=== PATIENT | female | born 1945 | race Caucasian/White ===

== ENCOUNTER → 2023-06-06 08:03 | Outpatient (REF) | payer MEDICARE, SELFPAY ==
[2023-06-06 09:12] LABS: HDL Cholesterol 75 mg/dl; LDL Cholesterol, Calculated 54 mg/dl; Total Cholesterol 141 mg/dl (50-199); Triglyceride 64 mg/dl (10-149); Very Low Density Lipoprotein 12 mg/dl (0-30)
== END ==
LOC: REG 08:03
PROVIDERS: Internal Medicine; ATTENDING PHYSICIAN Family Medicine
DX: E78.5 Hyperlipidemia, unspecified (principal); I70.0 Atherosclerosis of aorta
CPT/HCPCS: 36415; 80061

== ENCOUNTER → 2023-08-08 08:20 | Outpatient (REF) | payer MEDICARE, SELFPAY ==
[2023-08-08 09:28] LABS: % Eosinophils 6.4 % (0-6); % Immature Granulocytes 0.2 % (0-0.5); % Lymphocytes 25.2 % (20.5-51.1); % Monocytes 9.7 % (1.7-9.3); % Neutrophils 57.5 % (42.2-75.2); Absolute Basophils 0.1 10^3/uL (0-0.2); Absolute Eosinophils 0.3 10^3/uL (0-0.7); Absolute Lymphocytes 1.2 10^3/uL (1.2-3.4); Absolute Monocytes 0.5 10^3/uL (0.1-0.6); Absolute Neutrophils 2.8 10^3/uL (1.4-6.5); Hemoglobin 14.2 g/dL (12.0-16.0); Mean Corp Hgb Conc. 33.8 g/dL (33.0-37.0); Mean Corpuscular Hgb 29.8 pg (27.0-31.0); Mean Corpuscular Volume 88.2 fL (81.0-99.0); Mean Platelet Volume 10.6 fL (7.4-10.4); Nucleated Red Blood Cells % 0 %; Platelet Count 247 10^3/uL (130-400); Red Blood Cell Count 4.76 10^6/uL (4.20-5.40); Red Cell Dist. Width 14.3 % (11.5-14.5); White Blood Cell Count 4.9 10^3/uL (4.8-10.8)
[2023-08-08 09:59] LABS: Erythrocyte Sed Rate 14 mm/hour (0-20)
[2023-08-08 11:58] LABS: ALT (SGPT) 22 U/L (0-35); AST (SGOT) 35 U/L (14-36); Albumin 4.3 g/dl (3.5-5.0); Alkaline Phosphatase 46 U/L (38-126); Blood Urea Nitrogen 16 mg/dl (7-17); Calcium 10.2 mg/dl (8.4-10.2); Carbon Dioxide 25 mmol/L (22-30); Chloride 105 mmol/L (98-107); Glucose 56 mg/dl (70-99); Potassium 4.6 mmol/L (3.5-5.1); Sodium 138 mmol/L (135-145); Total Bilirubin 0.5 mg/dl (0.2-1.3); eGFR > 60.00
[2023-08-08 12:54] LABS: C-Reactive Protein < 5.00 mg/L (0.0-10.00)
[2023-08-10 17:02] LABS: Quantiferon Mitogen minus NIL 8.85 IU/mL; Quantiferon NIL 0.03 IU/mL; Quantiferon TB Gold Plus Negative (Negative)
== END ==
LOC: REG 08:20
PROVIDERS: ATTENDING PHYSICIAN Internal Medicine Rheumatology; FAMILY PHYSICIAN Family Medicine
DX: M05.89 Other rheumatoid arthritis with rheumatoid factor of multiple sites (principal); M81.0 Age-related osteoporosis without current pathological fracture; Z11.1 Encounter for screening for respiratory tuberculosis; Z79.899 Other long term (current) drug therapy
CPT/HCPCS: 36415; 80053; 85025; 85652; 86140; 86480

== ENCOUNTER → 2023-08-10 10:53 | Outpatient (REF) | payer MEDICARE, SELFPAY | LOC: WDC 10:53 | PROVIDERS: ATTENDING PHYSICIAN Family Medicine | DX: Z12.31 Encounter for screening mammogram for malignant neoplasm of breast (principal) | CPT/HCPCS: 77063; 77067 ==

== ENCOUNTER 2023-09-26 12:25 | Emergency (ER) | payer MEDICARE, SELFPAY ==
[2023-09-26 12:34] VITALS: BP 161/81
[2023-09-26 12:59] LABS: % Basophils 1.2 % (0-2); % Eosinophils 4.7 % (0-6); % Immature Granulocytes 0.2 % (0-0.5); % Lymphocytes 31.2 % (20.5-51.1); % Monocytes 8.6 % (1.7-9.3); % Neutrophils 54.1 % (42.2-75.2); Absolute Basophils 0.1 10^3/uL (0-0.2); Absolute Eosinophils 0.3 10^3/uL (0-0.7); Absolute Lymphocytes 2.1 10^3/uL (1.2-3.4); Absolute Monocytes 0.6 10^3/uL (0.1-0.6); Absolute Neutrophils 3.6 10^3/uL (1.4-6.5); Hematocrit 40.9 % (37.0-47.0); Mean Corp Hgb Conc. 34.2 g/dL (33.0-37.0); Mean Corpuscular Hgb 29.8 pg (27.0-31.0); Mean Platelet Volume 9.7 fL (7.4-10.4); Nucleated Red Blood Cells % 0 %; Platelet Count 249 10^3/uL (130-400); Red Cell Dist. Width 14.5 % (11.5-14.5); White Blood Cell Count 6.6 10^3/uL (4.8-10.8)
[2023-09-26 13:04] VITALS: BP 147/71
[2023-09-26 13:17] LABS: ALT (SGPT) 21 U/L (0-35); AST (SGOT) 34 U/L (14-36); Albumin 4.5 g/dl (3.5-5.0); Alkaline Phosphatase 45 U/L (38-126); Blood Urea Nitrogen 17 mg/dl (7-17); Calcium 9.9 mg/dl (8.4-10.2); Carbon Dioxide 26 mmol/L (22-30); Chloride 105 mmol/L (98-107); Glucose 100 mg/dl (70-99); Potassium 4.6 mmol/L (3.5-5.1); Sodium 141 mmol/L (135-145); Total Bilirubin 0.6 mg/dl (0.2-1.3); Total Protein 7.4 g/dl (6.3-8.2); eGFR > 60.00
[2023-09-26 13:56] VITALS: BMI 24.3
[2023-09-26 14:00] VITALS: BP 134/70
[2023-09-26 14:18] LABS: Troponin I 0.039 ng/ml
--- NOTE | 2023-09-26 14:28 | ED.GENMED ---
History of Present Illness
<Kenia Conklin PA-C - Last Filed: 09/28/23 13:10>
General
Chief Complaint: Chest Pain
Time Seen by Provider: 09/26/23 13:55
Travel History
Have you had any contact with someone who has COVID-19?: No
Do you have any symptoms of coronavirus? Fever > 100 degrees, chills, cough, shortness of breath, sore throat, loss of taste or smell, muscle aches, or headache?: No
History of Present Illness
History of Present Illness:
78 y/[address] F[address]ed by Dr[address] Caro, history of coarctation of the aorta repair, complete heart block in 2021 requiring pacer, stroke on Eliquis who presents for chest discomfort which she noticed around 11:30 PM last night before bed. It comes in waves
like a crescendo decrescendo from the left axilla into her left upper chest and then resolves. She is also felt fatigued over the last couple of days and did not realize why. She has no pleuritic component to the pain.
Pain is not related to deep breathing or movement. She has no exertional component to her pain. It spontaneously last a minute or so. It comes as a crescendo decrescendo and feels like a pressure or squeezing in her chest. The max intensity is 5
out of 10. She has no new associated symptoms like nausea, vomiting, diaphoresis, shortness of breath, syncope, leg swelling. Patient does have a chronic cough related to her postnasal drip. She is immunocompromised due to meds for RA and
Sjogren's
Past History
<Kenia Conklin PA-C - Last Filed: 09/28/23 13:10>
Past History
ED Past Medical History: CVA (Cerebellar) and Other (ra)
ED Past Surgical History: Other (Craniotomy)
Social History
Tobacco: Non-smoker
Alcohol: None
Personal:
Living: with family
Phy Exam
<Kenia Conklin PA-C - Last Filed: 09/28/23 13:10>
Physical Exam
Physical Exam:
GENERAL: Alert , in no apparent distress
EYE: pupils equal and reactive
NECK: Supple
ENT: o/p clr, mmm.
CARDIAC: Regular rate and rhythm + murmur 3/6
chest wall: nontender,.
LUNGS: Clear breath sounds bilaterally, no acute respiratory distress, no wheezes/rales/rhonchi
ABDOMEN: Soft, without focal tenderness, no r/g, no cvat, normal bowel sounds
NEUROLOGICAL: Alert and oriented, no focal neuro deficits
SKIN: Warm and dry, skin intact.
MUSCULOSKELETAL: No edema, well perfused. neg elvie's sign
PSYCH: Normal and appropriate interaction.
Scores
<Kenia Conklin PA-C - Last Filed: 09/28/23 13:10>
Heart Score for Chest Pain Patients
STEMI patient?: No
History: Moderately Suspicious
ECG: Nonspecific Repolarization
Age: >/= 65 years
Risk Factors: >/= 3 Risk Factors or History of CAD
Troponin: >1 - <3 x Normal Limit
Heart Score for Chest Pain Patients: 7
Heart Score Risk: 72.7 % MACE over next 6 weeks
<Mauro Anderson PA-C - Last Filed: 09/28/23 14:30>
Heart Score for Chest Pain Patients
Heart Score for Chest Pain Patients: 7
Heart Score Risk: 72.7 % MACE over next 6 weeks
Course
<Kenia Conklin PA-C - Last Filed: 09/28/23 13:10>
Orders/Labs/Results
Orders:
Orders
09/26/23 12:26
Electrocardiogram (*1) Urgent
Reason for Study: Chest Pain
EKG- Treatment ONCE
09/26/23 12:50
Complete Blood Count/With Diff Urgent
Comprehensive Metabolic Panel Urgent
Troponin I Urgent
09/26/23 14:39
EKG- Treatment ONCE
CR Chest - 2 Views Urgent
Comment:
Reason For Exam: chest pain
09/26/23 14:42
Consult Cardiology [CARDIOLOGY CONSULT] Urgent
Consulting Provider: Kemi Luis
Was physician already notified: Yes
09/26/23 15:50
Electrocardiogram (*1) Urgent
Reason for Study: Chest Pain
09/26/23 16:08
Troponin I Urgent
Abnormal Lab Results
09/26/23 09/26/23
12:50 16:08
Glucose 100 H mg/dl
(70-99)
Troponin I 0.039 H* ng/ml 0.047 H* ng/ml
09/26/23 12:50
09/26/23 12:50
Vital Signs
Initial and Last Documented VS:
Initial Vital Signs
Temp Pulse Resp BP Pulse Ox
97.9 F 85 18 161/81 100
09/26/23 12:34 09/26/23 12:34 09/26/23 12:34 09/26/23 12:34 09/26/23 12:34
Last Documented Vital Signs
Temp Pulse Resp BP Pulse Ox
97.9 F 81 18 132/62 96
09/26/23 12:34 09/26/23 17:30 09/26/23 17:30 09/26/23 17:00 09/26/23 17:30
<Mauro Anderson PA-C - Last Filed: 09/28/23 14:30>
Orders/Labs/Results
Orders:
Orders
09/26/23 12:26
Electrocardiogram (*1) Urgent
Reason for Study: Chest Pain
EKG- Treatment ONCE
09/26/23 12:50
Complete Blood Count/With Diff Urgent
Comprehensive Metabolic Panel Urgent
Troponin I Urgent
09/26/23 14:39
EKG- Treatment ONCE
CR Chest - 2 Views Urgent
Comment:
Reason For Exam: chest pain
09/26/23 14:42
Consult Cardiology [CARDIOLOGY CONSULT] Urgent
Consulting Provider: Kemi Luis
Was physician already notified: Yes
09/26/23 15:50
Electrocardiogram (*1) Urgent
Reason for Study: Chest Pain
09/26/23 16:08
Troponin I Urgent
Abnormal Lab Results
09/26/23 09/26/23
12:50 16:08
Glucose 100 H mg/dl
(70-99)
Troponin I 0.039 H* ng/ml 0.047 H* ng/ml
09/26/23 12:50
09/26/23 12:50
Vital Signs
Initial and Last Documented VS:
Initial Vital Signs
Temp Pulse Resp BP Pulse Ox
97.9 F 85 18 161/81 100
09/26/23 12:34 09/26/23 12:34 09/26/23 12:34 09/26/23 12:34 09/26/23 12:34
Last Documented Vital Signs
Temp Pulse Resp BP Pulse Ox
97.9 F 81 18 132/62 96
09/26/23 12:34 09/26/23 17:30 09/26/23 17:30 09/26/23 17:00 09/26/23 17:30
<Kenia Conklin PA-C - Last Filed: 09/28/23 13:10>
MDM/Problems Addressed
Differential Diagnosis Includes:
ACS, nstemi, noncardiac chest pain ,msk pain
MDM/Problems Addressed:
78 y/o F followed by dr. caro
coarc of aorta repair , s/p pacer for comp heart block 2021
intermittent left chest pain with fatigue (fatigue x 2 days, L ches tpain comes in waves from axilla to anterior left chest lasting a few minutes, squeezing)
no pain currently but has had episodes while here in the department
no syncope, swelling, sob, pleuritic pain
ekgs x 2 paced
initial trop 0.038 which is elevated minimally
d/w taker off hemp fiber dr. loaiza, 2nd trop pending but she felt that pt's pain is likely MSK/noncardiac and would be comfortable discharging as long as trop not delta elevation
signed out to miguel larsen
<Kenia Conklin PA-C - Last Filed: 09/28/23 13:10>
*Critical Care Note
Total Time (30-74mins, 75-104mins- exclusive of procedures): Not Applicable
<Mauro Anderson PA-C - Last Filed: 09/28/23 14:30>
Update Note
Update Note:
Assumed care of pt from Selin Conklin PA-C at shift change 1600. Pt evaluated by cardiology Dr Luis, chest pain quite atypical. Will plan for outpatient stress. Repeat trop with slight uptick from 0.039 to 0.047, reviewed w/ cards, again
comfortable with outpatient stress given low pre test probability.
ED Attending Note
<Kenia Conklin PA-C - Last Filed: 09/28/23 13:10>
-
Portions of this chart may have been created with voice recognition software.� Occasional wrong word or��sound alike� substitutions may have occurred due to the inherent limitations of voice recognition software.
Discharge Plan
Departure
Patient Disposition: Home (Routine Discharge)
Date of Disposition: 09/26/23
Time of Disposition: 17:01
Patient with high blood pressure during this ER visit?: No
Discharge Problem:
Atypical chest pain
Instructions: Chest Pain CBC Follow Up
Prescriptions:
No Action
famotidine [Pepcid AC] 20 MG tablet
20 mg PO HSPRN PRN (Reason: gastrointestinal issue)
hydroxychloroquine 200 MG tablet
200 mg PO DAILY
fluticasone propionate 1 SPRAY spray,suspension
1 spray intranasal DAILYPRN PRN (Reason: congestion )
cholecalciferol (vitamin D3) [Vitamin D3] 1,000 UNIT capsule
1,000 unit PO DAILY@1400
cyclosporine [Restasis] 10 DROPS dropperette
1 drp BOTH EYES BID
cyanocobalamin (vitamin B-12) [Vitamin B-12] 500 mcg Tablet
500 mcg PO MOTH
diazepam [Valium] 2 mg Tablet
2 mg PO HSPRN PRN (Reason: insomnia)
losartan 25 mg Tablet
25 mg PO DAILY
calcium citrate-vitamin D3 250 mg-5 mcg (200 unit) Tablet
1 tab PO HS
Prolia 60 mg/mL Syringe
60 mg SC [id number]
Orencia
0 mg IV Q4W
Eliquis 5 mg Tablet
5 mg PO BID Qty: 1 0RF
diltiazem HCl 120 mg Capsule,Extended Release 24hr
120 mg PO BID
moxifloxacin 0.5 % Drops
1 drp LEFT EYE QID
rosuvastatin 10 mg Tablet
10 mg PO HS
Referrals:
Erica Malone MD [Family Provider] -
Activity Restrictions/Additional Instructions:
Follow up with Dr Caro's office for stress test as discussed during your ER visit
Interventions
Interventions:
*Risk Screen - Suicide Last Done: 09/26/23 12:34
*General Assessment Last Done: 09/26/23 17:56
*Neglect/Abuse Screening Last Done: 09/26/23 12:34
ED- Fall Risk Assessment Last Done: 09/26/23 14:00
*ED COVID-19 Vaccine History Last Done: 09/26/23 12:34
*Nursing Disposition Last Done: 09/26/23 17:56
ED- Cardiac Assessment Last Done: 09/26/23 14:00
Discharge Date and Time
Discharge Date/Time: 09/26/23 17:58
Print Language: COLOMBIAN
--- NOTE | 2023-09-26 15:27 | CON.CAR ---
Addendum entered and electronically signed by Kemi Luis MD 09/26/23 18:41:
I saw and examined the patient.
The SLEEPER CUTTER's note was reviewed and I agree with the note.
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
neurology at [place]), dyslipidemia, and rheumatoid arthritis, who presents to the ER with c/o left upper chest pain that began last night while lying in bed around midnight. She describes the chest pain as squeezing pain that begin in her left
upper chest and radiates into her left axilla area, lasts for 30 seconds then resolves on its own. It goes as quickly as it comes. IT follows no rhyme or reason, is not exertional. She has diffues RA as well in all joints. on exam, diffuse chest
wall tendeness anteriorly, the pain she has is different and is just below her clavicle near her ppm pocket, this had no evidence of pocket infection, ppm is normally positioned not moving. Her troponin is 0.03 and 0.04. ECG is vpacing. Her cp is
very atypical in location, description and nonexertional component. Low suspicion for acs. Unclear etiology muscular>RA>cardiac. Will arrange for ouptatient stress testing and follow up with Dr Pedraza.
Original Note:
Consultation
Consultation Request
Date/Time Consultation Requested: 09/26/23 2:40p
Date/Time Consultation Performed: 09/26/23 3p
Requesting Provider: Dr. Edwards
Performing Provider: CRISTAL Ellison for Dr. Luis
Reason for Consultation: chest pain
Medical History
-
Chief Complaint: chest pain
History of Present Illness:
Mrs. 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
with neurology at [place]), dyslipidemia, and rheumatoid arthritis, who presents to the ER with c/o left upper chest pain that began last night while lying in bed around midnight. She describes the chest pain as pressure/squeezing pain that begin
in her left upper chest and radiates to her left axilla area, lasts for 30 seconds then resolves on its own. There are no associated symptoms. This am upon waking, she noted the chest pain and it was intermittent 6-8 times. It is not worse with
exertion. She went to her exercise class this am, without worsened symptoms. Initial troponin is 0.039, EKG A paced V sensed.
Past Medical History
Past Medical History: Other (as above)
Past Surgical History: Other (as above)
Social History
Tobacco: Non-Smoker
Alcohol: None
Personal:
Living: With Family
Family History
Family History: Reviewed & Not Pertinent
Allergies / Home Medications
Allergy/AdvReac Type Severity Reaction Status Date / Time
adhesive tape Allergy Swelling, Verified 09/26/23 12:34
skin
irritation
ciprofloxacin Allergy Swelling Verified 09/26/23 12:34
codeine Allergy Nausea / Verified 09/26/23 12:34
Vomiting
Iodinated Contrast Media Allergy Anaphylaxis Verified 09/26/23 12:34
[Iodinated Contrast Media -
IV Dye]
iodine Allergy Shortness Verified 09/26/23 12:34
of Breath
moxifloxacin HCl Allergy Swelling Verified 09/26/23 12:34
[From Avelox]
mushroom Allergy Nausea / Verified 09/26/23 12:34
Vomiting
phenylephrine Allergy Eye drops Verified 09/26/23 12:34
- extended
dilation
of eye
prochlorperazine Allergy PARKINSON Verified 09/26/23 12:34
[From Compazine] LIKE
SYMPTOMS
prochlorperazine edisylate Allergy PARKINSON Verified 09/26/23 12:34
[From Compazine] LIKE
SYMPTOMS
prochlorperazine maleate Allergy PARKINSON Verified 09/26/23 12:34
[From Compazine] LIKE
SYMPTOMS
shellfish derived Allergy intestinal Verified 09/26/23 12:34
upset
levofloxacin AdvReac Swelling Verified 09/26/23 12:34
�Medication �Instructions �Recorded �Confirmed �Type
cholecalciferol (vitamin D3) 25 1,000 unit PO DAILY@1400 Supplement 02/29/20 09/26/23 History
mcg (1,000 unit) capsule (Vitamin
D3)
cyclosporine 0.05 % eye drops in a 1 drp BOTH EYES BID Eye condition 02/29/20 09/26/23 History
dropperette (Restasis)
famotidine 20 mg tablet (Pepcid AC) 20 mg PO HSPRN PRN 02/29/20 09/26/23 History
gastrointestinal issue
fluticasone propionate 50 1 spray intranasal DAILYPRN PRN 02/29/20 09/26/23 History
mcg/actuation nasal congestion
spray,suspension
hydroxychloroquine 200 mg tablet 200 mg PO DAILY Autoimmune disorder 02/29/20 09/26/23 History
Orencia 0 mg IV Q4W Autoimmune disorder 12/02/21 09/26/23 History
calcium citrate 250 mg 1 tab PO HS Supplement 12/02/21 09/26/23 History
calcium-vitamin D3 5 mcg (200
unit) tablet
cyanocobalamin (vitamin B-12) 500 500 mcg PO MOTH Supplement 12/02/21 09/26/23 History
mcg tablet (Vitamin B-12)
denosumab 60 mg/mL subcutaneous 60 mg SC [id number] OSTEOPOROSIS 12/02/21 09/26/23 History
syringe (Prolia)
diazepam 2 mg tablet (Valium) 2 mg PO HSPRN PRN insomnia 12/02/21 09/26/23 History
losartan 25 mg tablet 25 mg PO DAILY Blood pressure 12/02/21 09/26/23 History
apixaban 5 mg tablet (Eliquis) 5 mg PO BID #1 tab 12/03/21 09/26/23 Rx
diltiazem HCl 120 mg 120 mg PO BID 09/26/23 09/26/23 History
capsule,extended release 24 hr
moxifloxacin 0.5 % eye drops 1 drp LEFT EYE QID 09/26/23 09/26/23 History
rosuvastatin 10 mg tablet 10 mg PO HS 09/26/23 09/26/23 History
Review of Systems
-
History Source: Patient
All other systems: Negative unless noted
Physical Exam
Vital Signs
Temp Pulse Resp BP Pulse Ox
97.9 F 77 13 147/71 98
09/26/23 12:34 09/26/23 13:30 09/26/23 13:30 09/26/23 13:04 09/26/23 14:00
Lab Results
09/26/23 12:50
09/26/23 12:50
Troponin I 0.039 ng/ml H* 09/26/23 12:50
Physical Exam
General: Well Developed, Well Nourished and No Apparent Distress
HEENT: Normocephalic, Anicteric and Moist Mucous Membranes
Respiratory: Clear and Non Labored Respirations
Cardiac: S1/S2, Regular Rhythm and Murmur (2/6 MORRO)
Breast: Deferred by me
GI: Soft, Non Tender, Non Distended and Normal Bowel Sounds
Rectal: Deferred by Provider
Genito-urinary: No Costovertebral Tender
Musculoskeletal: No Clubbing
Skin: Warm and Dry
Neuro: AO x 3
Hematologic/Lymphatic: No Lymphadenopathy
Psych: Calm
Impression / Plan
-
Chest pain - intermittent, not with exertion.
- initial troponin 0.039, check second troponin.
- if second troponin is stable then ok to d/c home with outpatient follow up.
- if second troponin is abnormal then we can do an inpatient stress test.
- cath 02/2020: no obstructive CAD.
Afib - paroxysmal.
- stable w/o palpitations.
- V paced.
- on Eliqius, continue.
- continue Diltiazem, intolerant to beta blockers.
- no Afib seen on recent device check 08/2023.
HLD - stable on Crestor 10mg daily.
- LDL 54.
Pacemaker - MDT DC device.
- normal function, followed in our outpatient device clinic.
H/o co-arctation and PDA - s/p repair in 1955.
- stable on echo 10/2022.
CVA - cerebellar, in 2013.
- follows with neurology at [place].
Data Reviewed
-
EKG: Tracing Personally Visualized and interpreted (A sensed, V paced 80 bpm)
Radiology: Report Reviewed by me (cxr: NAD)
Medical Tests (Nuc Med, Echo etc): Report Reviewed by me (echo 10/2022: EF 65-70%, mild/mod AR, no residual PDA or aortic coarctation )
Labs: Labs Reviewed by me
Old Records: Reviewed
[2023-09-26 16:00] VITALS: BP 123/106
[2023-09-26 16:50] LABS: Troponin I 0.047 ng/ml
[2023-09-26 17:00] VITALS: BP 132/62
== END 2023-09-26 17:58 | disposition home or self-care (01) ==
LOC: EMR 12:25
PROVIDERS: Emergency Medicine; Physician Assistant; CONSULT PHYSICIAN Internal Medicine Cardiovascular Disease; EMERGENCY PHYSICIAN Emergency Medicine; FAMILY PHYSICIAN Family Medicine
DX: R07.89 Other chest pain (principal); R53.83 Other fatigue; I48.0 Paroxysmal atrial fibrillation; I10 Essential (primary) hypertension; M06.9 Rheumatoid arthritis, unspecified; E78.5 Hyperlipidemia, unspecified; M35.00 Sjogren syndrome, unspecified; Z79.01 Long term (current) use of anticoagulants; Z95.0 Presence of cardiac pacemaker; Z86.73 Personal history of transient ischemic attack (TIA), and cerebral infarction without residual deficits
CPT/HCPCS: 99285; 71046; 80053; 84484; 85025; 93005

== ENCOUNTER → 2023-09-29 07:23 | Outpatient (REF) | payer MEDICARE, SELFPAY ==
[2023-09-29] MEDS: LEXISCAN 0.400000000000000022 MG IV (09:04)
[2023-09-29] MEDS: AMINOPHYLLINE 75 MG IV (09:21)
== END ==
LOC: RCS 07:23
PROVIDERS: ATTENDING PHYSICIAN Internal Medicine; FAMILY PHYSICIAN Family Medicine
DX: R07.89 Other chest pain (principal)
CPT/HCPCS: 78452; 93017; A9500; J2785

== ENCOUNTER → 2023-12-21 13:41 | Outpatient (REF) | payer MEDICARE, SELFPAY | LOC: HWRAD 13:41 | PROVIDERS: ATTENDING PHYSICIAN Family Medicine | DX: R10.2 Pelvic and perineal pain (principal) | CPT/HCPCS: 76830; 76856 ==

== ENCOUNTER → 2024-02-13 09:17 | Outpatient (REF) | payer MEDICARE, SELFPAY ==
[2024-02-13 10:28] LABS: % Basophils 1.5 % (0-2); % Eosinophils 5.1 % (0-6); % Immature Granulocytes 0.2 % (0-0.5); % Lymphocytes 27.5 % (20.5-51.1); % Monocytes 8.7 % (1.7-9.3); Absolute Basophils 0.1 10^3/uL (0-0.2); Absolute Eosinophils 0.3 10^3/uL (0-0.7); Absolute Lymphocytes 1.5 10^3/uL (1.2-3.4); Absolute Monocytes 0.5 10^3/uL (0.1-0.6); Hematocrit 42.8 % (37.0-47.0); Hemoglobin 14.4 g/dL (12.0-16.0); Mean Corp Hgb Conc. 33.6 g/dL (33.0-37.0); Mean Corpuscular Hgb 29.1 pg (27.0-31.0); Mean Corpuscular Volume 86.5 fL (81.0-99.0); Nucleated Red Blood Cells % 0 %; Platelet Count 287 10^3/uL (130-400); Red Blood Cell Count 4.95 10^6/uL (4.20-5.40); Red Cell Dist. Width 14.2 % (11.5-14.5); White Blood Cell Count 5.3 10^3/uL (4.8-10.8)
[2024-02-13 10:46] LABS: Erythrocyte Sed Rate 12 mm/hour (0-20)
[2024-02-13 11:03] LABS: ALT (SGPT) 26 U/L (0-35); AST (SGOT) 37 U/L (14-36); Albumin 4.7 g/dl (3.5-5.0); Alkaline Phosphatase 42 U/L (38-126); Blood Urea Nitrogen 17 mg/dl (7-17); Calcium 10.3 mg/dl (8.4-10.2); Carbon Dioxide 26 mmol/L (22-30); Chloride 105 mmol/L (98-107); Glucose 84 mg/dl (70-99); Potassium 4.5 mmol/L (3.5-5.1); Sodium 144 mmol/L (135-145); Total Bilirubin 0.4 mg/dl (0.2-1.3); Total Protein 7.3 g/dl (6.3-8.2); eGFR > 60.00
[2024-02-13 11:22] LABS: Vitamin D, 25-OH*** 50.7 ng/mL (30-80)
== END ==
LOC: REG 09:17
PROVIDERS: ATTENDING PHYSICIAN Internal Medicine Rheumatology; FAMILY PHYSICIAN Family Medicine
DX: E55.9 Vitamin D deficiency, unspecified (principal); M05.89 Other rheumatoid arthritis with rheumatoid factor of multiple sites; M81.0 Age-related osteoporosis without current pathological fracture; Z79.899 Other long term (current) drug therapy; I10 Essential (primary) hypertension
CPT/HCPCS: 36415; 80053; 82306; 85025; 85652; 86140

== ENCOUNTER → 2024-02-15 11:11 | Outpatient (REF) | payer MEDICARE, SELFPAY ==
[2024-02-15 16:42] LABS: Urine Albumin Negative (Neg - Trace); Urine Bilirubin Negative (Negative); Urine Character Clear (Clear); Urine Color Yellow; Urine Glucose Negative (Negative); Urine Ketone Negative (Negative); Urine Leukocyte Trace (Negative); Urine Nitrite Negative (Negative); Urine Occult Blood Negative (Negative); Urine Urobilinogen Negative (Neg - 1+); Urine pH 6.5 (5.0-9.0)
[2024-02-15 17:02] LABS: Urine Bacteria Few (Negative); Urine Red Blood Cell 0-2 /HPF (0-2); Urine Squamous Cell 16-20 /LPF (Few)
== END ==
LOC: HWLAB 11:11
PROVIDERS: ATTENDING PHYSICIAN Family Medicine
DX: N94.89 Other specified conditions associated with female genital organs and menstrual cycle (principal); Z79.899 Other long term (current) drug therapy
CPT/HCPCS: 81003; 81015; 87077; 87086; 87186

== ENCOUNTER → 2024-03-23 08:36 | Outpatient (REF) | payer MEDICARE, SELFPAY ==
[2024-03-23 13:12] LABS: % Basophils 1.1 % (0-2); % Eosinophils 3.6 % (0-6); % Immature Granulocytes 0.2 % (0-0.5); % Lymphocytes 25.4 % (20.5-51.1); % Monocytes 8.8 % (1.7-9.3); % Neutrophils 60.9 % (42.2-75.2); Absolute Basophils 0.1 10^3/uL (0-0.2); Absolute Eosinophils 0.2 10^3/uL (0-0.7); Absolute Lymphocytes 1.4 10^3/uL (1.2-3.4); Absolute Monocytes 0.5 10^3/uL (0.1-0.6); Absolute Neutrophils 3.4 10^3/uL (1.4-6.5); Hematocrit 44.7 % (37.0-47.0); Hemoglobin 14.6 g/dL (12.0-16.0); Mean Corp Hgb Conc. 32.7 g/dL (33.0-37.0); Mean Corpuscular Hgb 29.4 pg (27.0-31.0); Mean Corpuscular Volume 89.9 fL (81.0-99.0); Mean Platelet Volume 11.2 fL (7.4-10.4); Nucleated Red Blood Cells % 0 %; Platelet Count 211 10^3/uL (130-400); Red Blood Cell Count 4.97 10^6/uL (4.20-5.40); Red Cell Dist. Width 14.5 % (11.5-14.5); White Blood Cell Count 5.6 10^3/uL (4.8-10.8)
[2024-03-23 13:28] LABS: ALT (SGPT) 25 U/L (0-35); AST (SGOT) 41 U/L (14-36); Albumin 4.5 g/dl (3.5-5.0); Alkaline Phosphatase 33 U/L (38-126); Blood Urea Nitrogen 16 mg/dl (7-17); Calcium 9.7 mg/dl (8.4-10.2); Carbon Dioxide 26 mmol/L (22-30); Chloride 106 mmol/L (98-107); Glucose 86 mg/dl (70-99); HDL Cholesterol 70 mg/dl; LDL Cholesterol, Calculated 55 mg/dl; Potassium 4.7 mmol/L (3.5-5.1); Sodium 142 mmol/L (135-145); Total Bilirubin 0.5 mg/dl (0.2-1.3); Total Cholesterol 137 mg/dl (50-199); Total Protein 7.2 g/dl (6.3-8.2); Triglyceride 60 mg/dl (10-149); Very Low Density Lipoprotein 12 mg/dl (0-30); eGFR > 60.00
[2024-03-23 13:52] LABS: TSH Reflex To Free T4 2.63 uIU/ml (0.47-4.68)
== END ==
LOC: HWLAB 08:36
PROVIDERS: ATTENDING PHYSICIAN Family Medicine; REFERRING PHYSICIAN Internal Medicine
DX: I10 Essential (primary) hypertension (principal); E78.5 Hyperlipidemia, unspecified; I48.0 Paroxysmal atrial fibrillation
CPT/HCPCS: 36415; 80053; 80061; 84443; 85025

== ENCOUNTER → 2024-04-03 10:45 | Outpatient (REF) | payer MEDICARE, SELFPAY ==
[2024-04-03 16:20] LABS: Urine Albumin Trace (Neg - Trace); Urine Bilirubin Negative (Negative); Urine Character Very Cloudy (Clear); Urine Color Yellow; Urine Glucose Negative (Negative); Urine Ketone Negative (Negative); Urine Leukocyte 2+ (Negative); Urine Nitrite Negative (Negative); Urine Occult Blood 4+ (Negative); Urine Urobilinogen Negative (Neg - 1+); Urine pH 6.5 (5.0-9.0)
[2024-04-03 16:30] LABS: Urine Bacteria Moderate (Negative); Urine Red Blood Cell 21-25 /HPF (0-2); Urine White Cell 30-40 /HPF (0-5)
== END ==
LOC: HWLAB 10:45
PROVIDERS: ATTENDING PHYSICIAN Obstetrics & Gynecology; FAMILY PHYSICIAN Family Medicine
DX: N39.0 Urinary tract infection, site not specified (principal)
CPT/HCPCS: 81003; 81015; 87086

== ENCOUNTER 2024-05-18 09:43 | Outpatient (RCR) | payer MEDICARE, SELFPAY | END 2024-05-18 23:59 | disposition home or self-care (01) | LOC: RPT 09:43 | PROVIDERS: ATTENDING PHYSICIAN Obstetrics & Gynecology; FAMILY PHYSICIAN Family Medicine | DX: M62.89 Other specified disorders of muscle (principal); Z73.6 Limitation of activities due to disability; R35.0 Frequency of micturition | CPT/HCPCS: 97110; 97161; 97530 ==

== ENCOUNTER → 2024-06-01 12:30 | Outpatient (REF) | payer MEDICARE, SELFPAY ==
[2024-06-01 15:23] LABS: Urine Albumin 1+ (Neg - Trace); Urine Bilirubin Negative (Negative); Urine Character Clear (Clear); Urine Color Yellow; Urine Glucose Negative (Negative); Urine Ketone Negative (Negative); Urine Leukocyte 1+ (Negative); Urine Nitrite Negative (Negative); Urine Occult Blood Negative (Negative); Urine Specific Gravity 1.005 (<1.030); Urine Urobilinogen Negative (Neg - 1+)
[2024-06-01 15:59] LABS: Urine Red Blood Cell 0-2 /HPF (0-2)
== END ==
LOC: HWLAB 12:30
PROVIDERS: ATTENDING PHYSICIAN Obstetrics & Gynecology; FAMILY PHYSICIAN Family Medicine
DX: N39.0 Urinary tract infection, site not specified (principal)
CPT/HCPCS: 81003; 81015; 87086

== ENCOUNTER 2024-06-06 11:22 | Outpatient (RCR) | payer MEDICARE, SELFPAY | END 2024-06-06 23:59 | disposition home or self-care (01) | LOC: RPT 11:22 | PROVIDERS: ATTENDING PHYSICIAN Obstetrics & Gynecology; FAMILY PHYSICIAN Family Medicine | DX: M62.89 Other specified disorders of muscle (principal); Z73.6 Limitation of activities due to disability; R35.0 Frequency of micturition | CPT/HCPCS: 97110; 97112; 97140; 97530 ==

== ENCOUNTER → 2024-06-15 11:57 | Outpatient (REF) | payer MEDICARE, SELFPAY | LOC: CLAB 11:57 | PROVIDERS: ATTENDING PHYSICIAN Obstetrics & Gynecology | DX: R39.9 Unspecified symptoms and signs involving the genitourinary system (principal) | CPT/HCPCS: 87077; 87086 ==

== ENCOUNTER → 2024-06-25 13:00 | Outpatient (REF) | payer MEDICARE, SELFPAY ==
[2024-06-25 16:35] LABS: Urine Albumin 2+ (Neg - Trace); Urine Bilirubin Negative (Negative); Urine Character Cloudy (Clear); Urine Color Yellow; Urine Glucose Negative (Negative); Urine Ketone Negative (Negative); Urine Leukocyte 3+ (Negative); Urine Nitrite Negative (Negative); Urine Occult Blood 4+ (Negative); Urine Urobilinogen Negative (Neg - 1+)
[2024-06-25 16:48] LABS: Urine White Cell >100 /HPF (0-5)
[2024-06-25 16:49] LABS: Urine Bacteria Many (Negative)
== END ==
LOC: CLAB 13:00
PROVIDERS: ATTENDING PHYSICIAN Obstetrics & Gynecology
DX: N39.0 Urinary tract infection, site not specified (principal)
CPT/HCPCS: 81003; 81015; 87086

== ENCOUNTER 2024-06-29 09:50 | Outpatient (RCR) | payer MEDICARE, SELFPAY | END 2024-06-29 23:59 | disposition home or self-care (01) | LOC: RPT 09:50 | PROVIDERS: ATTENDING PHYSICIAN Obstetrics & Gynecology; FAMILY PHYSICIAN Family Medicine | DX: M62.89 Other specified disorders of muscle (principal); Z73.6 Limitation of activities due to disability; R35.0 Frequency of micturition | CPT/HCPCS: 97110; 97112; 97140; 97530 ==

== ENCOUNTER 2024-08-03 09:56 | Outpatient (RCR) | payer MEDICARE, SELFPAY | END 2024-08-03 23:59 | disposition home or self-care (01) | LOC: RPT 09:56 | PROVIDERS: ATTENDING PHYSICIAN Obstetrics & Gynecology; FAMILY PHYSICIAN Family Medicine | DX: M62.89 Other specified disorders of muscle (principal); R35.0 Frequency of micturition; Z73.6 Limitation of activities due to disability | CPT/HCPCS: 97110; 97112; 97140; 97530 ==

== ENCOUNTER → 2024-08-17 10:53 | Outpatient (REF) | payer MEDICARE, SELFPAY ==
[2024-08-17 12:14] LABS: % Basophils 1.2 % (0-2); % Eosinophils 2.8 % (0-6); % Immature Granulocytes 0.2 % (0-0.5); % Lymphocytes 26.5 % (20.5-51.1); % Monocytes 9.1 % (1.7-9.3); % Neutrophils 60.2 % (42.2-75.2); Absolute Basophils 0.1 10^3/uL (0-0.2); Absolute Eosinophils 0.2 10^3/uL (0-0.7); Absolute Lymphocytes 1.6 10^3/uL (1.2-3.4); Absolute Monocytes 0.6 10^3/uL (0.1-0.6); Absolute Neutrophils 3.6 10^3/uL (1.4-6.5); Hematocrit 44.1 % (37.0-47.0); Mean Corpuscular Hgb 29.9 pg (27.0-31.0); Mean Platelet Volume 10.4 fL (7.4-10.4); Nucleated Red Blood Cells % 0 %; Platelet Count 276 10^3/uL (130-400); Red Blood Cell Count 5.01 10^6/uL (4.20-5.40); Red Cell Dist. Width 14.2 % (11.5-14.5)
[2024-08-17 12:55] LABS: Erythrocyte Sed Rate 8 mm/hour (0-20)
[2024-08-17 14:21] LABS: ALT (SGPT) 22 U/L (0-35); AST (SGOT) 31 U/L (14-36); Albumin 5.1 g/dl (3.5-5.0); Alkaline Phosphatase 39 U/L (38-126); Blood Urea Nitrogen 14 mg/dl (7-17); Calcium 10.1 mg/dl (8.4-10.2); Carbon Dioxide 25 mmol/L (22-30); Chloride 105 mmol/L (98-107); Glucose 98 mg/dl (70-99); Potassium 4.4 mmol/L (3.5-5.1); Sodium 142 mmol/L (135-145); Total Bilirubin 0.6 mg/dl (0.2-1.3); Total Protein 7.6 g/dl (6.3-8.2); eGFR > 60.00
[2024-08-17 16:19] LABS: C-Reactive Protein < 5.00 mg/L (0.0-10.00)
[2024-08-17 16:58] LABS: Vitamin D, 25-OH*** 47.5 ng/mL (30-80)
[2024-08-19 06:45] LABS: Quantiferon Mitogen minus NIL 9.96 IU/mL; Quantiferon NIL 0.04 IU/mL; Quantiferon TB Gold Plus Negative (Negative)
== END ==
LOC: WDC 10:53
PROVIDERS: ATTENDING PHYSICIAN Family Medicine; OTHER PHYSICIAN Internal Medicine Rheumatology
DX: Z12.31 Encounter for screening mammogram for malignant neoplasm of breast (principal); E55.9 Vitamin D deficiency, unspecified; M05.89 Other rheumatoid arthritis with rheumatoid factor of multiple sites; M35.00 Sjogren syndrome, unspecified; Z11.1 Encounter for screening for respiratory tuberculosis; Z79.899 Other long term (current) drug therapy
CPT/HCPCS: 36415; 80053; 82306; 85025; 85652; 86140; 86480

== ENCOUNTER 2024-08-28 06:24 | Day surgery (SDC) | payer MEDICARE, SELFPAY | END 2024-08-28 11:11 | disposition home or self-care (01) | LOC: GI 06:24 | PROVIDERS: ATTENDING PHYSICIAN Surgery; FAMILY PHYSICIAN Family Medicine | DX: Z12.11 Encounter for screening for malignant neoplasm of colon (principal); Z83.719 Family history of colon polyps, unspecified; K57.30 Diverticulosis of large intestine without perforation or abscess without bleeding; K63.89 Other specified diseases of intestine; K64.8 Other hemorrhoids; D12.4 Benign neoplasm of descending colon; D12.5 Benign neoplasm of sigmoid colon; Z98.0 Intestinal bypass and anastomosis status | CPT/HCPCS: 45385; 45380; 88305 ==

== ENCOUNTER 2024-09-14 10:56 | Outpatient (RCR) | payer MEDICARE, SELFPAY | END 2024-09-14 23:59 | disposition home or self-care (01) | LOC: RPT 10:56 | PROVIDERS: ATTENDING PHYSICIAN Obstetrics & Gynecology; FAMILY PHYSICIAN Family Medicine | DX: M62.89 Other specified disorders of muscle (principal); Z73.6 Limitation of activities due to disability; R35.0 Frequency of micturition | CPT/HCPCS: 97110; 97112; 97530 ==

== ENCOUNTER 2024-10-10 11:52 | Outpatient (RCR) | payer MEDICARE, SELFPAY | END 2024-10-10 23:59 | disposition home or self-care (01) | LOC: RPT 11:52 | PROVIDERS: ATTENDING PHYSICIAN Obstetrics & Gynecology; FAMILY PHYSICIAN Family Medicine | DX: M62.89 Other specified disorders of muscle (principal); Z73.6 Limitation of activities due to disability; R35.0 Frequency of micturition | CPT/HCPCS: 97110; 97112; 97140 ==

== ENCOUNTER 2024-11-09 12:40 | Outpatient (RCR) | payer MEDICARE, SELFPAY | END 2024-11-09 23:59 | disposition home or self-care (01) | LOC: RPT 12:40 | PROVIDERS: ATTENDING PHYSICIAN Obstetrics & Gynecology; FAMILY PHYSICIAN Family Medicine | DX: M62.89 Other specified disorders of muscle (principal); Z73.6 Limitation of activities due to disability; R35.0 Frequency of micturition | CPT/HCPCS: 97110; 97140 ==

== ENCOUNTER 2024-11-16 14:47 | Outpatient (RCR) | payer MEDICARE, SELFPAY | END 2024-11-16 23:59 | disposition home or self-care (01) | LOC: RPT 14:47 | PROVIDERS: ATTENDING PHYSICIAN Obstetrics & Gynecology; FAMILY PHYSICIAN Family Medicine | DX: M62.89 Other specified disorders of muscle (principal); Z73.6 Limitation of activities due to disability; R35.0 Frequency of micturition | CPT/HCPCS: 97110; 97140; 97530 ==

== ENCOUNTER → 2024-12-10 09:37 | Outpatient (REF) | payer MEDICARE, SELFPAY | LOC: HWRAD 09:37 | PROVIDERS: ATTENDING PHYSICIAN Internal Medicine Rheumatology; FAMILY PHYSICIAN Family Medicine | DX: M05.89 Other rheumatoid arthritis with rheumatoid factor of multiple sites (principal); M81.0 Age-related osteoporosis without current pathological fracture; M85.89 Other specified disorders of bone density and structure, multiple sites | CPT/HCPCS: 77080; 77081 ==

== ENCOUNTER → 2025-02-22 09:28 | Outpatient (REF) | payer MEDICARE, SELFPAY ==
[2025-02-22 12:28] LABS: Hematocrit 44.4 % (37.0-47.0); Hemoglobin 14.5 g/dL (12.0-16.0); Mean Corp Hgb Conc. 32.7 g/dL (33.0-37.0); Mean Corpuscular Volume 91.9 fL (81.0-99.0); Nucleated Red Blood Cells % 0 %; Platelet Count 255 10^3/uL (130-400); Red Cell Dist. Width 14.3 % (11.5-14.5)
[2025-02-22 12:44] LABS: ALT (SGPT) 19 U/L (0-35); AST (SGOT) 28 U/L (14-36); Albumin 4.5 g/dl (3.5-5.0); Alkaline Phosphatase 41 U/L (38-126); Blood Urea Nitrogen 12 mg/dl (7-17); Calcium 9.9 mg/dl (8.4-10.2); Carbon Dioxide 27 mmol/L (22-30); Chloride 106 mmol/L (98-107); Glucose 90 mg/dl (70-99); HDL Cholesterol 72 mg/dl; LDL Cholesterol, Calculated 44 mg/dl; Potassium 3.9 mmol/L (3.5-5.1); Sodium 138 mmol/L (135-145); Total Protein 7.3 g/dl (6.3-8.2); Very Low Density Lipoprotein 12 mg/dl (0-30); eGFR > 60.00
[2025-02-22 12:53] LABS: C-Reactive Protein < 5.00 mg/L (0.0-10.00)
== END ==
LOC: HWLAB 09:28
PROVIDERS: ATTENDING PHYSICIAN Internal Medicine Rheumatology; FAMILY PHYSICIAN Family Medicine; REFERRING PHYSICIAN Internal Medicine
DX: M05.89 Other rheumatoid arthritis with rheumatoid factor of multiple sites (principal); M81.0 Age-related osteoporosis without current pathological fracture; Z79.899 Other long term (current) drug therapy; I10 Essential (primary) hypertension; I65.23 Occlusion and stenosis of bilateral carotid arteries; E53.8 Deficiency of other specified B group vitamins; E78.2 Mixed hyperlipidemia; D64.9 Anemia, unspecified; Z79.01 Long term (current) use of anticoagulants; Z51.81 Encounter for therapeutic drug level monitoring
CPT/HCPCS: 36415; 80053; 80061; 84443; 85025; 85652; 86140